=== PATIENT | female | born 1995 | race African-American/Black ===

== ENCOUNTER 2017-11-08 11:30 | Emergency (ER) | payer OTHER ==
[~2017-11-08] VITALS: Ht 157.5 cm; Wt 54.5 kg
[2017-11-08] MEDS ORDERED: BENZOCAINE/MENTHOL LOZENGE [8 LOZENGES/PACKET] PO ONE (13:45)
[2017-11-08 13:52] VITALS: BP 98/58
== END 2017-11-08 14:31 | disposition home or self-care (01) ==
LOC: EMS 11:30
DX: J06.9 Acute upper respiratory infection, unspecified (principal); J02.9 Acute pharyngitis, unspecified; R51 Headache; M54.5 Low back pain; M79.604 Pain in right leg; M79.605 Pain in left leg; R10.30 Lower abdominal pain, unspecified
CPT/HCPCS: 99283

== ENCOUNTER 2017-12-13 07:52 | Emergency (ER) | payer OTHER ==
[~2017-12-13] VITALS: Ht 157.5 cm; Wt 59.1 kg
[2017-12-13 09:32] LABS: GLUCOSE,POINT OF CARE 81 MG/DL (70-110)
[2017-12-13 10:15] VITALS: BP 110/69
== END 2017-12-13 10:15 | disposition home or self-care (01) ==
LOC: EMS 07:53
DX: R20.0 Anesthesia of skin (principal); M21.42 Flat foot [pes planus] (acquired), left foot; M21.41 Flat foot [pes planus] (acquired), right foot
CPT/HCPCS: 82948; 82962; 99283

== ENCOUNTER 2024-09-06 22:31 | Emergency (ER) | payer OTHER | END 2024-09-07 00:13 | disposition left against medical advice (07) | LOC: EDUNIT# 22:31 → EMS 22:33 | DX: Z53.21 Procedure and treatment not carried out due to patient leaving prior to being seen by health care provider (principal) ==